=== PATIENT | male | born 1965 | race Hispanic/Latino ===

== ENCOUNTER 2020-06-24 05:56 | Day surgery (SDC) | payer OTHER ==
[2020-06-21 16:50] LABS: CREATININE 1.5 mg/dL (0.5-1.5); POTASSIUM 3.5 mmol/L (3.5-5.1)
[2020-06-21 16:56] LABS: BASOPHILS % (AUTO) 1.1 % (0.0-5.0); EOSINOPHILS % (AUTO) 3.5 % (0.0-8.0); HEMATOCRIT 44.8 % (42-54); LYMPHOCYTES % (AUTO) 26.9 % (21.0-51.0); MEAN CORPUSCULAR HGB CONC 33.5 g/dL (32.0-36.0); MEAN CORPUSCULAR VOLUME 89.6 fL (79-99); MONOCYTES % (AUTO) 7.9 % (3.0-13.0); NEUTROPHILS % (AUTO) 60.2 % (40.0-77.0); PLATELET COUNT (AUTO) 149 K/uL (130-400); RED CELL DISTRIBUTION WIDTH 12.8 % (11.0-15.5); WHITE BLOOD COUNT (AUTO) 8.3 K/uL (4.8-10.8)
[2020-06-23 12:15] VITALS: BP 122/69
[~2020-06-24] VITALS: Ht 172.7 cm; Wt 102.5 kg
[2020-06-24] VITALS (19 sets, daily range): BP systolic 95–115; BP diastolic 59–74
[~2020-06-24 05:56] MED LIST: ALBU8.5H8 IH; HYDR25TA PO; LOSA100T58 PO; METO-409 PO; NIFE60TA81 PO; ROSU40TA21 PO; TRAM50TA4 PO
[2020-06-24] MEDS: CEFAZOLIN SODIUM 1 GM VIAL IVP SCH ×2 (06:00→09:11)
[2020-06-24] MEDS ORDERED: OMEP20TA25 PO (06:39)
[2020-06-24] MEDS: LACTATED RINGERS 1000ML 1,000 ML IV SCH ×2 (06:45→09:42)
[2020-06-24] MEDS ORDERED: PROPOFOL 10 MG/ML 20ML VIAL IV ONE (08:29)
[2020-06-24] MEDS ORDERED: LIDOCAINE PF 2% 5ML ABBOJECT ONE (08:29)
[2020-06-24] MEDS ORDERED: DEXAMETHASONE SOD PHOSPHATE 10MG/ML 1ML VIAL ONE (08:30)
[2020-06-24] MEDS ORDERED: ROCURONIUM 10MG/1ML SYR 10 MG/ML ML ONE (08:30)
[2020-06-24] MEDS ORDERED: ONDANSETRON HCL 4 MG/2 ML VIAL ONE (08:30)
[2020-06-24] MEDS ORDERED: FENTANYL CITRATE PF 50 MCG/1 ML 2ML VIAL ONE (08:31)
[2020-06-24] MEDS ORDERED: MIDAZOLAM HCL 1 MG/ML 2ML VIAL ONE (08:32)
[2020-06-24] MEDS ORDERED: ROPIVACAINE 0.5% 5MG/ML 30ML IJ ONE (08:38)
[2020-06-24] MEDS ORDERED: CEFAZOLIN SODIUM 1 GM VIAL IVP ONE (09:11)
[2020-06-24] MEDS ORDERED: EPHEDRINE SULFATE 50 MG/ML AMPULE ONE (09:46)
[2020-06-24] MEDS ORDERED: NEOSTIGMINE 5MG/5ML SYR IV ONE (10:38)
[2020-06-24] MEDS ORDERED: GLYCOPYRROLATE 1 MG/5 ML SYRINGE ONE (10:38)
--- NOTE | 2020-06-24 12:05 | NUR ---
DAY PT ARRIVAL PT BROUGHT TO ROOM BY EMILIA RN, NOTED IN NO DISTRESS OR PAIN, DRESSING TO LEFT SHOULDER THAT IS CLEAN AND DRY. BROUGHT TO BEDSIDE AT THIS TIME.
--- NOTE | 2020-06-24 13:00 | NUR ---
DAY PT DC PT TAKEN TO FRONT ER LOBBY, REMAINS N NO DISTRESS. INSTRUCTIONS PROVIDED PER .
== END 2020-06-24 13:17 | disposition home or self-care (01) ==
LOC: DAH 05:56
PROVIDERS: ATTEND Orthopaedic Surgery
DX: M75.122 Complete rotator cuff tear or rupture of left shoulder, not specified as traumatic (principal); K21.9 Gastro-esophageal reflux disease without esophagitis; I10 Essential (primary) hypertension; F17.200 Nicotine dependence, unspecified, uncomplicated; E66.9 Obesity, unspecified; J44.9 Chronic obstructive pulmonary disease, unspecified; G47.33 Obstructive sleep apnea (adult) (pediatric); Z68.34 Body mass index [BMI] 34.0-34.9, adult; Z79.899 Other long term (current) drug therapy; Z20.828 Contact with and (suspected) exposure to other viral communicable diseases
CPT/HCPCS: 29827; 29828; 36415; 64415; 76942; 80048; 85025; 93005; A4215 ×2; A4216; A4221 ×2; A4222 ×2; A4223 ×4; A4452; A4600; A4606; A4649 ×4; A4663 ×2; A4930 ×2; C1713 ×3; C9803; J0690 ×2; J1100; J2001; J2250; J2405; J2704; J2710; J2795; J3010; J3490 ×2; J7120 ×2; U0003